=== PATIENT | female | born 1930 | race Caucasian/White ===

== ENCOUNTER 2018-07-29 05:40 | Inpatient (IN) ==
[2018-07-29] MEDS ORDERED: Metoprolol Tartrate 25 MG Tablet PO ONE (06:19)
[2018-07-29] MEDS ORDERED: Chlorhexidine Gluconate 2% 1 Pack (2 Cloths) TOPICAL ONE (06:19)
[2018-07-29] MEDS ORDERED: Dexamethasone Inj 20 MG/5 ML Vial IV.PUSH ONE (06:20)
[2018-07-29] MEDS ORDERED: Dexamethasone Inj 20 MG/5 ML Vial ONE (06:22)
[2018-07-29] MEDS ORDERED: Sodium Chlor 0.9% Inj 250 ML ONE (06:22)
[2018-07-29] MEDS ORDERED: ceFAZolin 2 GM Premix Inj 2 GM/100 ML BAG IV.SIG ONE (06:22)
[2018-07-29] MEDS ORDERED: Famotidine PF Inj 20 MG/2 ML Vial ONE (06:23)
[2018-07-29] MEDS ORDERED: fentaNYL Citrate Inj 100 MCG/2 ML Ampul ONE (06:23)
[2018-07-29] MEDS ORDERED: fentaNYL Citrate Inj 250 MCG/5 ML Ampul ONE (06:23)
[2018-07-29] MEDS ORDERED: Sodium Chlor 0.9% Inj 40 ML, Bupivacaine Liposo PF 1.3% Inj 20 ML P-ARTICULR SCH ×2 (06:30)
[2018-07-29] MEDS ORDERED: Chlorhexidine 4% Topical 120 APPLIC/120 ML Bottle TOPICAL SCH (06:30)
[2018-07-29] MEDS ORDERED: Glycopyrrolate Inj 1 MG/5 ML Syringe IV.PUSH ONE (06:51)
[2018-07-29] MEDS ORDERED: Lidocaine PF 1% Inj 5 ML Syringe INFILTRATN ONE (06:51)
[2018-07-29] MEDS ORDERED: Neostigmine Inj 5 MG/5 ML Syringe IV.PUSH ONE (06:51)
--- NOTE | 2018-07-29 06:57 | P.DCO ---
- Physical Therapy Physical Therapy: Gait training, Transfer training, bed to chair Hip: Total hip Left Lower Extremity Weight Bearing: Weight bearing as tolerated Left Lower Extremity Range of Motion: Active ROM - Nursing Nursing: Dianne allen Dressing changes: Do not change dressing Additional instructions: First dressing change in the office - Certification Need for Home Health services: I have seen patient Florinda King on 07/29/18. My clinical findings support the need for the requested home health care services because: Need for Home Health Services: Limited ability to care for self, High risk of falls Homebound Certification: I certify that my clinical findings support that this patient is homebound because: Homebound Certification: Post-op weakness, Unsteady gait/balance
[2018-07-29] MEDS ORDERED: SODIUM CHLOR 0.9% IV.SIG SCH ×2 (07:00→10:00)
[2018-07-29] MEDS ORDERED: Sodium Chlor 0.9% Inj 500 ML IV.SIG SCH (07:00)
[2018-07-29] MEDS ORDERED: ceFAZolin 2 GM Premix Inj 2 GM/50 ML PIGGYBACK IV.SIG SCH (07:00)
[2018-07-29] MEDS ORDERED: TRANEXAMIC ACID IV.SIG SCH ×2 (07:00→10:00)
[2018-07-29] MEDS ORDERED: Vancomycin Inj 1,000 MG in Sodium Chlor 0.9% Inj 250 ML IV.SIG SCH (07:00)
[2018-07-29] MEDS ORDERED: Post-op Orders (for Pharmacy) OTHER STA (08:31)
[2018-07-29] MEDS ORDERED: Aluminum/Magnesium/Simethacone Susp 30 ML UDC PO PRN (08:31)
[2018-07-29] MEDS ORDERED: Morphine Inj 4 MG/ML Vial IV.PUSH PRN (08:31)
[2018-07-29] MEDS ORDERED: Bisacodyl 10 MG Supp RECTAL PRN (08:31)
[2018-07-29] MEDS ORDERED: Zolpidem Tartrate 5 MG Tablet PO PRN (08:31)
--- NOTE | 2018-07-29 08:36 | P.OP ---
Preoperative Diagnosis: Left hip severe arthritis. Left hip femoral neck stress fracture. Postoperative Diagnosis: Same Date of procedure: 07/29/18 Procedure: Left total hip arthroplasty Anesthesia: GETA Surgeon: Colten Barrios MD Cook Specialty: KANDACE Villa The surgical procedure was assisted by my Advanced Registered Nurse Practitioner. My MINE ENVIRONMENTAL ENGINEER presence was necessary throughout this case for the manipulation and positioning of the surgical extremity. My MINE ENVIRONMENTAL ENGINEER was assisting me throughout the duration of this procedure. The skill set of an Advance Registered Nurse Practitioner was medically necessary to complete this procedure. During the surgical case, the surgical oncologist was working at the back table and the Advance Registered Nurse Practitioner was directly assisting me. Pathology: other (Femoral head) Operation and Findings: IMPLANT DESCRIPTION: 1. [place] Gription Cup, acetabular size 50. 2. [place] AltrX polyethylene, neutral. 4. [place] femoral stem size 12, no collar, standard offset. 5. Femoral head/neck metal, 32, +9. ESTIMATED BLOOD LOSS: 150 cc. 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 She also has evidence of a stress fracture of the femoral neck on the MRI. There is an attached conservative measures pathway form in the chart that describes the nonoperative measures that were undertaken prior to consideration of surgical management. The patient understood the risks and benefits of surgical management. See my office notes for further details. PROCEDURE: The patient was brought back to the operative theatre. Adequate anesthesia was obtained. The patient received intravenous vancomycin and Ancef. The patient was carefully placed on the operative table. The lower extremity was prepped and draped in the usual sterile fashion. Fluoroscopic images were obtained. We made a standard anterior incision over the hip. We dissected through the TFL fascia, exposing the anterior capsule. Arthrotomy was performed in a T-shaped fashion. The capsule was tagged with a #2 FiberWire. End-stage arthritis was identified. Osteotomy was performed through the femoral neck exposing the acetabulum. When we performed the femoral neck cut we found that there was whitish fluid that was expressed from the femoral neck which was consistent with the edema that was noted on the MRI. We did send the femoral head for final pathology. Within the acetabulum we found multiple moderately sized whitish fragments within the joint which were not necessarily consistent with cartilage as they were softer and much more friable. We did send 1 of these down to pathology as well. Remnants of the labrum were resected and osteophytes were removed. We sequentially reamed the acetabulum. We trialed the hip and placed the final cup into position. This was done under fluoroscopic guidance to obtain the appropriate inclination and anteversion. A manhole cover was placed into the acetabular component. We then placed the final polyethylene into position and confirmed that it was well seated. Capsular attachments on the calcar and the inner aspect of the greater trochanter were resected. On the proximal aspect of the femur we used a rongeur , box osteotome, canal finder, sequential broaches and lateralizing rasp. We calcar planed the proximal femur. Then thoroughly irrigated the wound. We trialed the hip with the appropriate size stem. We placed the final stem in to position and trialed again. The hip was stable while it was externally rotated 60 degrees when the leg was lowered to the floor. At 70 of rotation there appeared to be some impingement which was levering the head anteriorly. However at 60 of external rotation this was not occurring. The final head was applied, and final fluoroscopic images were obtained. The wound was thoroughly irrigated again. Interarticular injection of liposomal bupivacaine was given. The capsule was closed with #2 FiberWire and #1 Vicryl. We obtained an excellent repair of the anterior capsule to help reduce instability. The deep fascia was closed with a #2 Stratafix, followed by 2-0 Vicryl in the skin and Dermabond dressing. Postop plan is to weight-bear as tolerated. DVT prophylaxis will be performed with HANDY Romo, early mobilization, and Lovenox followed by aspirin.
[2018-07-29] MEDS ORDERED: *Ondansetron Inj 4 MG/2 ML Vial PERIprocedural Use ONLY ONE (09:08)
[2018-07-29] MEDS: Sod Chloride 0.9% Inj 1,000 ML IV.CONT SCH ×2 (09:27→23:33)
--- NOTE | 2018-07-29 09:49 | XR ---
EXAM DATE: 07/29/2018 9:44 AM EDT AGE/SEX: 88 years / Female INDICATIONS: Post-op left hip. CLINICAL DATA: This is the patient's initial encounter. Patient reports that signs and symptoms have been present for 1 day and indicates a pain score of 0/10. MEDICAL/SURGICAL HISTORY: None. . Left knee surgery. COMPARISON: POI, MR HIP W/O CONTRAST, LEFT, 07/16/2018. . FINDINGS: Left total hip arthroplasty is identified. The femoral and acetabular components are well seated. The re is subcutaneous air about the left hip as expected. No fractures are seen. CONCLUSION: Postop left hip arthroplasty. Electronically signed by: Ezio Caro MD 07/29/2018 9:48 AM EDT
--- NOTE | 2018-07-29 10:36 | XR ---
EXAM DATE: 07/29/2018 10:16 AM EDT AGE/SEX: 88 years / Female INDICATIONS: Left anterior hip replacement done in operating room. CLINICAL DATA: This is the patient's initial encounter. Patient reports that signs and symptoms have been present for 1 day and indicates a pain score of Nonresponsive. MEDICAL/SURGICAL HISTORY: Non-responsive. Non-responsive. COMPARISON: No prior exams available for comparison. FINDINGS: 3 spot intraoperative fluoroscopic views of the left hip obtained demonstrating a total hip arthropla sty in satisfactory position. CONCLUSION: Postop left hip. Electronically signed by: Ezio Caro MD 07/29/2018 10:34 AM EDT
[2018-07-29] MEDS: Multivitamin/Minerals Therapeutic Tablet PO SCH ×2 (14:35→21:09)
[2018-07-29] MEDS: Senna/Docusate Sodium 8.6/50 MG Tablet PO SCH (21:09)
[2018-07-30 06:05] LABS: Hematocrit 38.7 % (35.0-46.0); Hemoglobin 13.1 gm/dL (11.6-15.3)
--- NOTE | 2018-07-30 07:10 | P.PNOP ---
Subjective Interval history: The patient is resting comfortably in bed in no acute distress. The patient reports minimal pain to the left hip. Physical Exam Vital signs: Vital Signs 07/29/18 08:47 07/29/18 09:00 07/29/18 09:15 Temperature 97.4 F L Pulse Rate 85 80 79 Respiratory Rate 18 18 16 Blood Pressure 132/66 143/72 H 144/75 H Pulse Oximetry 98 100 97 07/29/18 09:30 07/29/18 09:45 07/29/18 09:55 Temperature 97.6 F Pulse Rate 80 81 84 Respiratory Rate 16 16 16 Blood Pressure 146/77 H 142/78 H 140/78 Pulse Oximetry 95 96 97 07/29/18 16:00 07/29/18 19:04 07/29/18 23:52 Temperature 97.8 F 98.2 F 98.2 F Pulse Rate 90 90 97 H Respiratory Rate 18 17 17 Blood Pressure 126/66 120/58 L 145/74 H Pulse Oximetry 98 97 96 07/30/18 03:24 Temperature 97.3 F L Pulse Rate 82 Respiratory Rate 18 Blood Pressure 153/85 H Pulse Oximetry 98 Intake & Output 07/29/18 07/30/18 07/30/18 18:59 06:59 18:59 Intake Total 2899.94 / 2899.94 680 / 680 Output Total 150 / 150 Balance 2749.94 / 2749.94 680 / 680 Weight 64.6 kg Intake: IV 1555.94 / 1555.94 200 / 200 NS Inj 1,000 ML @ 80 mls/hr IV. 100 / 100 CONT .[id number] RAMON Rx#:[id number] LR 1000 mL Inj 1,000 ML @ 30 1000 / 1000 mls/hr IV.SIG .Q24H RAMON Rx#: [id number] Cyklokapron Inj 594 MG In NS 105.94 / 105.94 Inj 100 ML @ 200 mls/hr IV.SIG ONCE RAMON Rx#:[id number] Vancomycin Inj 1,000 MG In NS 250 / 250 Inj 250 ML @ 250 mls/hr IV.SIG MOBILE DEVICE ENGINEER RAMON Rx#:[id number] Ancef 2 GM Premix Inj 2 gm In 100 / 100 100 ml @ 0 mls/hr IV.SIG .STK- [facility] Rx#:[id number] Ancef Inj 1,000 MG In NS Inj 100 / 100 100 / 100 100 ML @ 200 mls/hr IV.SIG Q6H RAMON Rx#:[id number] Oral 1200 / 1200 480 / 480 Anesthesia Amount 144 / 144 Output: Estimated Blood Loss 150 / 150 Other: # Voids 6 1 Date of Last Bowel Movement 07/27/18 # Bowel Movements 0 Narrative: The patient's dressing is clean, dry, and intact. EHL/TA/G are intact. 2+ pedal pulse. The patient's calf is soft and nontender. Sensation is intact to light touch distally. Results - Labs CBC & Chem 7: 07/30/18 04:26 Laboratory Results - last 24 hr 07/29/18 07/30/18 06:34 04:26 Hgb 13.1 Hct 38.7 Blood Type O Positive Blood Type Recheck Required Antibody Screen Negative - Imaging Impressions Hip X-Ray 07/29/18 00:00 CONCLUSION: Postop left hip. Hip X-Ray 07/29/18 08:30 CONCLUSION: Postop left hip arthroplasty. - Procedures Left total hip arthroplasty Assessment and Plan - Problem List (1) Status post total hip replacement, left Code(s): Z96.642 - Presence of left artificial hip joint Status: Acute (2) Osteoarthritis of left hip Code(s): M16.12 - Unilateral primary osteoarthritis, left hip Status: Acute - Assessment and Plan POD #1: Left total hip arthroplasty 1. Weightbearing as tolerated on left lower extremity. 2. Lovenox followed by aspirin for DVT prophylaxis. 3. Ice as needed for swelling. 4. Stable per ortho for discharge to home health today or Friday. 5. The patient will follow up with Dr. Barrios and/or KANDACE Cotter as previously scheduled.
[2018-07-30] MEDS: Enoxaparin Inj 40 MG/0.4 ML Syringe SQ SCH (07:50)
[2018-07-30] MEDS: Senna/Docusate Sodium 8.6/50 MG Tablet PO SCH ×2 (08:00→20:56)
[2018-07-30] MEDS: amLODIPine 5 MG Tablet PO SCH (08:00)
[2018-07-30] MEDS: Multivitamin/Minerals Therapeutic Tablet PO SCH ×2 (08:00→20:55)
[2018-07-30] MEDS ORDERED: Dexamethasone Inj 20 MG/5 ML Vial IV.PUSH ONE (08:00)
[2018-07-30] MEDS: Sod Chloride 0.9% Inj 1,000 ML IV.CONT SCH (11:30)
[2018-07-31] MEDS: Sod Chloride 0.9% Inj 1,000 ML IV.CONT SCH (01:45)
[2018-07-31 06:54] VITALS: O2SAT 96
[2018-07-31 07:19] LABS: Hematocrit 40.6 % (35.0-46.0); Hemoglobin 13.8 gm/dL (11.6-15.3)
[2018-07-31] MEDS: Senna/Docusate Sodium 8.6/50 MG Tablet PO SCH (08:15)
[2018-07-31] MEDS: Multivitamin/Minerals Therapeutic Tablet PO SCH (08:16)
[2018-07-31] MEDS: Enoxaparin Inj 40 MG/0.4 ML Syringe SQ SCH (08:16)
[2018-07-31] MEDS: amLODIPine 5 MG Tablet PO SCH (08:16)
[2018-07-31 08:31] VITALS: BP 122/71; PULSE 79; RESP 16; TEMP 98.3
--- NOTE | 2018-07-31 10:32 | P.PNOP ---
Subjective Interval history: She feels better than before surgery. She is very happy with her progress since having surgery. Her pain is very well controlled. Physical Exam Vital signs: Vital Signs 07/30/18 12:00 07/30/18 16:00 07/30/18 20:00 Temperature 98.6 F 98.8 F 97.5 F L Pulse Rate 84 74 71 Respiratory Rate 18 18 13 Blood Pressure 124/65 132/75 128/62 Pulse Oximetry 95 96 95 07/31/18 00:00 07/31/18 04:00 07/31/18 08:00 Temperature 97.9 F 97.6 F 98.3 F Pulse Rate 68 61 79 Respiratory Rate 15 13 16 Blood Pressure 132/66 150/71 H 122/71 Pulse Oximetry 98 96 96 Intake & Output 07/30/18 07/31/18 07/31/18 18:59 06:59 18:59 Intake Total 1959 Balance 1959 Weight 63.9 kg Intake: IV 1000 / 1000 NS Inj 1,000 ML @ 80 mls/hr IV. 1000 / 1000 CONT .[id number] RAMON Rx#:[id number] Oral 960 / 960 Other: # Voids 3 3 Date of Last Bowel Movement 07/29/18 07/29/18 Narrative: The patient is sitting in the bedside chair. She can stand with her own strength without significant difficulty. The patient's dressing is clean, dry, and intact. There is some mild surrounding ecchymosis around the bandage but no drainage. There is some mild swelling. The patient's calf is soft and nontender. Sensation is intact to light touch distally. Results - Labs CBC & Chem 7: 07/31/18 07:02 Laboratory Results - last 24 hr 07/31/18 07:02 Hgb 13.8 Hct 40.6 - Procedures Left total hip arthroplasty Assessment and Plan - Problem List (1) Status post total hip replacement, left Code(s): Z96.642 - Presence of left artificial hip joint Status: Acute (2) Osteoarthritis of left hip Code(s): M16.12 - Unilateral primary osteoarthritis, left hip Status: Acute - Assessment and Plan POD #2: Left total hip arthroplasty 1. Weightbearing as tolerated on left lower extremity. 2. Lovenox followed by aspirin for DVT prophylaxis (patient has the postop prescription at home) 3. Ice as needed for swelling. 4. Stable per ortho for discharge to home health today. 5. The patient will follow up with Dr. Barrios and/or KANDACE Cotter as previously scheduled.
--- NOTE | 2018-07-31 23:25 | P.DS ---
Date of admission: 07/29/18 05:40 Primary care physician: Colette Lane Attending physician on discharge: Colten Barrios Anticipated date of discharge: 07/31/18 Brief History from admission: The patient has severe OA of the left hip and was admitted to the hospital to have a left TIARA. DS: Diagnosis - Discharge Diagnosis (1) Status post total hip replacement, left Status: Acute (2) Osteoarthritis of left hip Status: Acute DS: Summary Hospital Course: The patient was admitted to the hospital for severe osteoarthritis of the [left ] hip to have a [left] total hip arthroplasty. The patient's surgery went well with no complication. The patient is on a [regular] diet. The patient's DVT prophylaxis includes use of [Lovenox followed by aspirin]. The patient is weightbearing as tolerated. The patient was discharged [home with home health] and will follow up in the office with Dr. Barrios and/or KANDACE Cotter as previously scheduled. - Time Spent with Patient Total time spent providing and/or coordinating discharge services: Greater than 30 minutes Exam Vital signs: Vital Signs 07/31/18 00:00 07/31/18 04:00 07/31/18 08:00 Temperature 97.9 F 97.6 F 98.3 F Pulse Rate 68 61 79 Respiratory Rate 15 13 16 Blood Pressure 132/66 150/71 H 122/71 Pulse Oximetry 98 96 96 Intake & Output 07/31/18 07/31/18 08/01/18 06:59 18:59 06:59 Weight 63.9 kg Other: # Voids 3 Date of Last Bowel Movement 07/29/18 07/29/18 Narrative: See last progress note for physical exam. Results Procedures completed during hospitalization: Left total hip arthroplasty Completed studies during hospitalization: Pending at discharge 07/29/18 11:49 Surgical [PTH] Routine Labs on day of discharge: Labs from last 24 hours 07/31/18 07:02 Hgb 13.8 Hct 40.6 - Impressions ITS Impressions Hip X-Ray 07/29/18 08:30 CONCLUSION: Postop left hip arthroplasty. Discharge Plan - Discharge Disposition Patient Disposition: W/Home Health Service - Discharge Condition Condition: Stable - Discharge Order Discharge Orders: Discharge Order (Routine); Ordered 07/29/18 Ordered By: Juan Ramon Khan - Discharge Details Anticipated Discharge Date: 07/30/18 - Physicians Team Primary Care Provider: Colette Lane Attending Provider: Colten Barrios Other Providers: [facility],Insurance - Rxs /Orders / Referrals /Forms Prescriptions: Continue amlodipine 5 mg Tablet 5 mg PO DAILY Ambulatory Orders / Order Sets / DME: Adjustable Commode 3-in-1 (1 each) (Routine) Location: Determined by Patient Ordered By: Juan Ramon Khan Walker With Front Wheels (1 each) (Routine) Location: Determined by Patient Ordered By: Juan Ramon Khan Referrals: Colten Barrios MD [Physician] - See Instructions (f/u in the office with Dr. Barrios or KANDACE Cotter as previously scheduled.) Colette Lane M.D. [Primary Care Provider] - See Instructions - Discharge Instructions Patient Printed Instructions: Amlodipine (By mouth), How to Choose and Use a Walker (GEN), How to Use a Bedside Commode (GEN), Total Hip Replacement (DC) Additional Instructions: FULL WEIGHT BEARING. PRESCRIPTION PROVIDED BY SURGEON PRIOR TO ADMISSION. NO DRESSING CHANGE. - Post Discharge Care Plan Care Plan Goals: Discharge Care Plan Goals for Total Hip Replacement You had a hip replacement surgery. This means your natural hip was replaced with an artificial joint (prosthesis). You may be recovering at home or in a rehabilitation facility. Either way, you must take care of your new hip. Here are some goals to help you heal well. Directions to Meet your Goals: 1. Activity & Exercises: * Take pain medicine as directed by your doctor. * Dont drive until your doctor says its OK. And never drive while taking opioid pain medicine. * Wear the support stockings you were given in the hospital as directed by your surgeon. * Dont sit for more than 30 to 45 minutes at one time. * Dont lean forward while sitting. * Dont cross your legs. * Keep your feet flat on the floor. Dont turn your foot or leg inward. This stresses your hip joint. * Use an elevated toilet seat for 6 weeks after surgery. * Nap if you are tired, but dont stay in bed all day. * Sit on a firm cushion when you ride in a car and avoid sitting too low. Try not to bend your hip too much when getting in and out of the car. 2. Prevent Falls/Injury: * Follow your doctors orders regarding how much weight to put on the affected leg. * Dont bend at the hip when you bend over. Don't bend at the waist to put on socks and shoes. And avoid picking up items from the floor. * Use a cane, crutches, a walker, or handrails until your balance, flexibility, and strength improve. And remember to ask for help from others when you need it. * Free up your hands so that you can use them to keep balance. Use a sari pack , apron, or pockets to carry things. * Arrange your household to keep the items you need handy. Keep everything else out of the way. * Remove items that may cause you to fall, such as throw rugs and electrical cords. * Use nonslip bath mats, grab bars, an elevated toilet seat, and a shower chair in your bathroom * Sit on a shower stool or chair when you shower to keep from falling. 3. Precautions: * Prevent infection. Any infection will need to be treated immediately. Call your doctor right away if you think you might have an infection. * Tell your dentist that you have an artificial joint and take antibiotics as prescribed before any dental work. * Tell all your healthcare providers about your artificial joint before any medical procedure. * Maintain a healthy weight. Get help to lose any extra pounds. Added body weight puts stress on the joints. 4. Incision Care: * Prevent infection by washing your hands often. If an infection occurs, it will need to be treated right away. * Call your doctor right away if you think you may have an infection. Symptoms include a fever or an incision that leaks white, green, or yellow fluid. * Don't soak your incision in water until your doctor says its OK. This means no hot tubs, bathtubs, or swimming pools. * Follow your doctor's instructions for changing the dressing. * Dont rub the incision, or apply creams or lotions to it. * If you notice any redness or drainage around the bandage site, contact your surgeon's office immediately. 5. Follow-Up: Do Not miss your follow-up appointment. Keep up with all your appointments and yearly check ups When to call your doctor: Call your doctor right away if you have: Hip pain gets worse Pain or swelling in your calf or leg not related to your incision Tenderness or redness in your calf Fever of 100.4F (38C) or higher, or as directed by your healthcare provider Shaking chills Swelling or redness at the incision site gets worse Fluid draining from the incision Call 911: Call 911 right away if you have: Chest pain Shortness of breath Any pain or tenderness in your calf Your Health Problems: Goals to Promote Your Health: * To prevent worsening of your condition * To maintain your health at the optimal level Directions to Meet Your Goals: * Take your medications as prescribed * Follow your dietary instruction * Follow activity as directed * Keep your appointments as scheduled * Take your immunizations and boosters as scheduled * If your symptoms worsen call your PCP * If no PCP go to Urgent Care or Emergency Room Smoking is dangerous to your health. Avoid second hand smoke. You may reach the 24-hour crisis hotline for domestic abuse at .
== END 2018-07-31 10:42 | disposition home health service (06) ==
LOC: HSDI 05:40 → N06 10:12
PROVIDERS: ADMIT Orthopaedic Surgery; ATTEND Orthopaedic Surgery